=== PATIENT | female | born 2000 | race Two or more races ===

== ENCOUNTER 2020-06-08 13:55 | Inpatient (IN) | payer OTHER, MEDICAID ==
[~2020-06-08] VITALS: Ht 149.9 cm; Wt 55.9 kg
[2020-06-08 14:24] LABS: COVID AG,FIA SOURCE NASOPHARYNGEAL
[2020-06-08] MEDS ORDERED: ONDANSETRON HCL 4 MG/2 ML VIAL IVP ONE (14:30)
[2020-06-08] MEDS ORDERED: MORPHINE SULFATE 4 MG/ML SYRINGE IVP ONE (14:30)
[2020-06-08 15:37] LABS: BASOPHILS % (AUTO) 0.2 % (0.0-2.0); EOSINOPHILS % (AUTO) 0 % (1.0-6.0); HEMATOCRIT 37.1 % (36-46); HEMOGLOBIN 12.8 g/dL (12.0-16.0); LYMPHOCYTES # (AUTO) 0.6 K/uL (1.0-4.8); LYMPHOCYTES % (AUTO) 4.5 % (22.0-44.0); MEAN CORPUSCULAR HEMOGLOBIN 30.7 pg (26.0-34.0); MEAN CORPUSCULAR HGB CONC 34.6 G/dL (31.0-37.0); MEAN CORPUSCULAR VOLUME 89 fL (80-100); MONOCYTES # (AUTO) 0.4 K/uL (0.1-1.0); MONOCYTES % (AUTO) 3.2 % (2.0-9.0); NEUTROPHILS # (AUTO) 12.7 K/uL (1.8-7.7); PLATELET COUNT (AUTO) 163 K/uL (150-450); RED BLOOD CELL COUNT(AUTO) 4.18 MIL/uL (4.00-5.20); RED CELL DISTRIBUTION WIDTH 14.2 % (11.5-14.5)
[2020-06-08 15:45] LABS: NEUTROPHILS % (AUTO) 92.1 % (40.0-70.0)
[2020-06-08 15:49] LABS: ANION GAP 13 mmol/L (8-16); CALCIUM, TOTAL 8.7 mg/dL (8.8-10.5); CARBON DIOXIDE 23 mmol/L (22-29); CHLORIDE 105 mmol/L (98-107); CREATININE 0.65 mg/dL (0.60-1.30); GLOMERULAR FILTR. RATE CALC > 60 mL/min (>60); GLUCOSE,RANDOM 98 mg/dL (70-110); POTASSIUM 3.7 mmol/L (3.5-5.1); SODIUM SERUM 141 mmol/L (136-145); UREA NITROGEN, BLOOD 11 mg/dL (7-18)
[2020-06-08 16:03] LABS: ALANINE AMINOTRANSFERASE 33 U/L (12-78); ALBUMIN 4.1 g/dL (3.4-5.0); ALKALINE PHOSPHATASE 103 U/L (46-116); ASPARTATE AMINOTRANSFERASE 26 U/L (15-37); BILIRUBIN,TOTAL 0.7 mg/dL (0.1-1.0); HCG,QUANTITATIVE < 1 mIU/mL (0-6); TOTAL PROTEIN, SERUM 7.6 g/dL (6.4-8.2)
[2020-06-08 16:11] LABS: PROTHROMBIN TIME 10.9 SEC (9.4-11.6)
[2020-06-08] MEDS ORDERED: SODIUM CHLORIDE 0.9% 100 ML ONE (16:27)
[2020-06-08] MEDS ORDERED: IOVERSOL 350 MG/ML 100 ML VIAL ONE (16:28)
[2020-06-08 16:41] VITALS: BP 132/77
[2020-06-08] MEDS ORDERED: BISACODYL 10 MG RECTAL RECTAL SUPPOSITORY PR PRN (17:45)
[2020-06-08] MEDS ORDERED: MAGNESIUM HYDROXIDE SUSPENSION 30 ML UDCUP PO PRN (17:45)
[2020-06-08] MEDS ORDERED: ZOLPIDEM TARTRATE 5 MG TABLET PO PRN (17:45)
[2020-06-08] MEDS ORDERED: MORPHINE SULFATE 2 MG/ML SYRINGE IVP PRN (17:45)
[2020-06-08] MEDS: MORPHINE SULFATE 2 MG/ML SYRINGE IVP PRN (17:56)
[2020-06-08 19:22] VITALS: BP 117/70
[2020-06-08] MEDS: HYDROCODONE/ACETAMINOPHEN 5-325 MG TABLET PO PRN ×2 (20:17→23:55)
[2020-06-08] MEDS: DOCUSATE SODIUM 100 MG CAPSULE PO SCH (20:17)
[2020-06-08] MEDS: HEPARIN SODIUM,PORCINE 5,000 UNITS/ML VIAL SQ SCH (23:31)
[2020-06-09 03:50] VITALS: BP 128/72
[2020-06-09 07:29] VITALS: BP 117/77
[2020-06-09] MEDS: HEPARIN SODIUM,PORCINE 5,000 UNITS/ML VIAL SQ SCH (08:00)
[2020-06-09] MEDS: DOCUSATE SODIUM 100 MG CAPSULE PO SCH ×2 (08:05→20:02)
[2020-06-09] MEDS: PANTOPRAZOLE SODIUM 40 MG DR TABLET PO SCH (08:05)
[2020-06-09] MEDS: MORPHINE SULFATE 2 MG/ML SYRINGE IVP PRN (09:37)
[2020-06-09 10:23] VITALS: BP 119/78
[2020-06-09] MEDS ORDERED: RINGERS SOLUTION,LACTATED 1,000 ML IV ONE ×2 (10:30→11:30)
[2020-06-09] MEDS ORDERED: MUPIROCIN CALCIUM 2% 22 GM OINTMENT ONE (11:18)
[2020-06-09] MEDS ORDERED: VANCOMYCIN HCL 1 GM/VIAL ONE (11:18)
[2020-06-09] MEDS ORDERED: MICROFIBRILLAR COLLAGEN 1 GM PACKAGE TP ONE (11:18)
[2020-06-09] MEDS ORDERED: BUPIVACAINE HCL 0.25% 50 ML VIAL ONE (11:18)
[2020-06-09] MEDS ORDERED: SODIUM CL IRRIG SOLN BAG 3,000 ML IRRIG ONE (11:20)
[2020-06-09] MEDS ORDERED: BUPIVACAINE LIPOSOME/PF 1.3%-13.3MG/ML SUSPENSION 20 ML VIAL INJ ONE (11:30)
[2020-06-09] MEDS ORDERED: BUPIVACAINE HCL/PF 0.5% 30 ML VIAL ONE (12:04)
[2020-06-09] MEDS: CeFAZolin 2 GM/DEXTROSE 50 ML IV SCH ×2 (16:58→23:30)
[2020-06-09 17:03] VITALS: BP 121/74
[2020-06-09 19:50] VITALS: BP 136/81
[2020-06-09 23:45] VITALS: BP 131/66
[2020-06-10 04:50] VITALS: BP 118/70
[2020-06-10] MEDS: HYDROCODONE/ACETAMINOPHEN 5-325 MG TABLET PO PRN ×3 (05:04→23:02)
[2020-06-10] MEDS ORDERED: FentaNYL CITRATE PF 100 MCG/2 ML VIAL IVP ONE (05:45)
[2020-06-10] MEDS ORDERED: METOCLOPRAMIDE HCL 5 MG/ML 2 ML VIAL IVP ONE (05:45)
[2020-06-10] MEDS ORDERED: MIDAZOLAM HCL 2 MG/2 ML VIAL IVP ONE (05:45)
[2020-06-10] MEDS ORDERED: SUCCINYLCHOLINE CHLORIDE 20 MG/ML 10 ML VIAL IVP ONE (05:45)
[2020-06-10] MEDS ORDERED: LIDOCAINE/PF 2% 5 ML SYRINGE IVP ONE (05:45)
[2020-06-10] MEDS ORDERED: ONDANSETRON HCL 4 MG/2 ML VIAL IVP ONE (05:45)
[2020-06-10] MEDS ORDERED: DEXAMETHASONE SOD PHOS 4 MG/ML VIAL IVP ONE (05:45)
[2020-06-10 08:21] VITALS: BP 115/59
[2020-06-10] MEDS: PANTOPRAZOLE SODIUM 40 MG DR TABLET PO SCH (08:28)
[2020-06-10] MEDS: ENOXAPARIN SODIUM 30 MG/0.3 ML PF SYRINGE SQ SCH (08:28)
[2020-06-10] MEDS: DOCUSATE SODIUM 100 MG CAPSULE PO SCH ×2 (08:28→20:48)
[2020-06-10] MEDS: MORPHINE SULFATE 2 MG/ML SYRINGE IVP PRN ×2 (08:32→14:47)
[2020-06-10] MEDS ORDERED: SODIUM CHLORIDE 0.9% 1,000 ML ONE (09:21)
[2020-06-10] MEDS ORDERED: CeFAZolin SODIUM 500 MG in DEXTROSE 5%-WATER 50 ML IV SCH (17:00)
[2020-06-10] MEDS: CeFAZolin 2 GM/DEXTROSE 50 ML IV SCH (18:13)
[2020-06-10 20:21] VITALS: BP 122/76
[2020-06-11 00:16] VITALS: BP 116/79
[2020-06-11] MEDS: CeFAZolin 2 GM/DEXTROSE 50 ML IV SCH ×3 (02:19→18:56)
[2020-06-11 04:39] VITALS: BP 120/78
[2020-06-11 07:51] VITALS: BP 123/89
[2020-06-11] MEDS: PANTOPRAZOLE SODIUM 40 MG DR TABLET PO SCH (09:05)
[2020-06-11] MEDS: DOCUSATE SODIUM 100 MG CAPSULE PO SCH ×2 (09:05→20:12)
[2020-06-11] MEDS: ENOXAPARIN SODIUM 30 MG/0.3 ML PF SYRINGE SQ SCH (09:09)
[2020-06-11] MEDS: MUPIROCIN CALCIUM 2% 22 GM OINTMENT TP SCH (09:25)
[2020-06-11] MEDS: MORPHINE SULFATE 2 MG/ML SYRINGE IVP PRN ×3 (09:25→20:12)
[2020-06-11 15:31] VITALS: BP 117/79
[2020-06-11 19:46] VITALS: BP 106/61
[2020-06-11] MEDS: HYDROCODONE/ACETAMINOPHEN 5-325 MG TABLET PO PRN (23:30)
[2020-06-11 23:45] VITALS: BP 105/59
[2020-06-12 04:04] VITALS: BP 102/62
[2020-06-12] MEDS: HYDROCODONE/ACETAMINOPHEN 5-325 MG TABLET PO PRN ×4 (04:10→21:56)
[2020-06-12 08:07] VITALS: BP 99/67
[2020-06-12] MEDS: DOCUSATE SODIUM 100 MG CAPSULE PO SCH ×2 (08:17→20:03)
[2020-06-12] MEDS: PANTOPRAZOLE SODIUM 40 MG DR TABLET PO SCH (08:17)
[2020-06-12] MEDS: ENOXAPARIN SODIUM 30 MG/0.3 ML PF SYRINGE SQ SCH (08:17)
[2020-06-12] MEDS: MORPHINE SULFATE 2 MG/ML SYRINGE IVP PRN ×3 (10:57→20:03)
[2020-06-12] MEDS: MUPIROCIN CALCIUM 2% 22 GM OINTMENT TP SCH (14:39)
[2020-06-12 15:31] VITALS: BP 125/79
[2020-06-12 19:45] VITALS: BP 107/72
[2020-06-12] MEDS ORDERED: SODIUM CL IRRIG SOLN BOTTLE 250 ML IRRIG ONE (21:36)
[2020-06-13 00:07] VITALS: BP 129/82
[2020-06-13 03:22] VITALS: BP 111/74
[2020-06-13] MEDS: HYDROCODONE/ACETAMINOPHEN 5-325 MG TABLET PO PRN ×4 (03:28→17:09)
[2020-06-13] MEDS: MORPHINE SULFATE 2 MG/ML SYRINGE IVP PRN ×2 (05:40→10:11)
[2020-06-13 08:17] VITALS: BP 105/69
[2020-06-13] MEDS: PANTOPRAZOLE SODIUM 40 MG DR TABLET PO SCH (08:26)
[2020-06-13] MEDS: ENOXAPARIN SODIUM 30 MG/0.3 ML PF SYRINGE SQ SCH (08:26)
[2020-06-13] MEDS: DOCUSATE SODIUM 100 MG CAPSULE PO SCH ×2 (08:26→21:00)
[2020-06-13] MEDS: MUPIROCIN CALCIUM 2% 22 GM OINTMENT TP SCH (10:54)
[2020-06-13 19:45] VITALS: BP 108/65
[2020-06-13 23:35] VITALS: BP 107/51
[2020-06-14] MEDS: HYDROCODONE/ACETAMINOPHEN 5-325 MG TABLET PO PRN ×2 (02:35→08:13)
[2020-06-14 04:50] VITALS: BP 104/70
[2020-06-14] MEDS: MORPHINE SULFATE 2 MG/ML SYRINGE IVP PRN ×3 (05:00→19:55)
[2020-06-14] MEDS: PANTOPRAZOLE SODIUM 40 MG DR TABLET PO SCH (08:13)
[2020-06-14] MEDS: DOCUSATE SODIUM 100 MG CAPSULE PO SCH ×2 (08:13→21:00)
[2020-06-14] MEDS: ENOXAPARIN SODIUM 30 MG/0.3 ML PF SYRINGE SQ SCH (08:13)
[2020-06-14 08:28] VITALS: BP 112/55
[2020-06-14] MEDS: MUPIROCIN CALCIUM 2% 22 GM OINTMENT TP SCH (13:29)
[2020-06-14 16:03] VITALS: BP 106/64
[2020-06-14] MEDS ORDERED: DEXAMETHASONE 1 MG TABLET ONE (16:45)
[2020-06-14] MEDS ORDERED: PROPOFOL 1% 20 ML VIAL IVP ONE (16:45)
[2020-06-14] MEDS ORDERED: ROCURONIUM BROMIDE 10 MG/ML 5 ML VIAL ONE (16:45)
[2020-06-14 19:50] VITALS: BP 118/66
[2020-06-14 23:40] VITALS: BP 103/69
[2020-06-15] MEDS: MORPHINE SULFATE 2 MG/ML SYRINGE IVP PRN ×2 (00:21→04:22)
[2020-06-15 06:05] LABS: BASOPHILS % (AUTO) 0.3 % (0.0-2.0); EOSINOPHILS % (AUTO) 2.9 % (1.0-6.0); HEMATOCRIT 31.4 % (36-46); HEMOGLOBIN 10.9 g/dL (12.0-16.0); LYMPHOCYTES # (AUTO) 1.5 K/uL (1.0-4.8); LYMPHOCYTES % (AUTO) 19.3 % (22.0-44.0); MEAN CORPUSCULAR HGB CONC 34.7 G/dL (31.0-37.0); MEAN CORPUSCULAR VOLUME 89 fL (80-100); MONOCYTES # (AUTO) 0.4 K/uL (0.1-1.0); MONOCYTES % (AUTO) 5.1 % (2.0-9.0); NEUTROPHILS # (AUTO) 5.8 K/uL (1.8-7.7); NEUTROPHILS % (AUTO) 72.4 % (40.0-70.0); PLATELET COUNT (AUTO) 228 K/uL (150-450); RED BLOOD CELL COUNT(AUTO) 3.53 MIL/uL (4.00-5.20); RED CELL DISTRIBUTION WIDTH 14.4 % (11.5-14.5)
[2020-06-15 06:18] LABS: ANION GAP 10 mmol/L (8-16); CARBON DIOXIDE 27 mmol/L (22-29); CHLORIDE 102 mmol/L (98-107); CREATININE 0.61 mg/dL (0.60-1.30); GLOMERULAR FILTR. RATE CALC > 60 mL/min (>60); GLUCOSE,RANDOM 93 mg/dL (70-110); POTASSIUM 3.7 mmol/L (3.5-5.1); SODIUM SERUM 139 mmol/L (136-145); UREA NITROGEN, BLOOD 12 mg/dL (7-18)
[2020-06-15 08:18] VITALS: BP 104/65
[2020-06-15] MEDS: MUPIROCIN CALCIUM 2% 22 GM OINTMENT TP SCH (08:51)
[2020-06-15] MEDS: PANTOPRAZOLE SODIUM 40 MG DR TABLET PO SCH (08:51)
[2020-06-15] MEDS: DOCUSATE SODIUM 100 MG CAPSULE PO SCH ×2 (08:52→20:06)
[2020-06-15] MEDS: HYDROCODONE/ACETAMINOPHEN 5-325 MG TABLET PO PRN ×2 (14:16→20:05)
[2020-06-15 16:03] VITALS: BP 112/73
[2020-06-15 19:51] VITALS: BP 110/74
[2020-06-15 23:05] VITALS: BP 114/72
[2020-06-16] MEDS: HYDROCODONE/ACETAMINOPHEN 5-325 MG TABLET PO PRN (01:49)
[2020-06-16 04:00] VITALS: BP 107/55
[2020-06-16] MEDS: MORPHINE SULFATE 2 MG/ML SYRINGE IVP PRN ×3 (05:48→20:13)
[2020-06-16] MEDS: PANTOPRAZOLE SODIUM 40 MG DR TABLET PO SCH (08:47)
[2020-06-16] MEDS: DOCUSATE SODIUM 100 MG CAPSULE PO SCH ×2 (08:47→20:12)
[2020-06-16] MEDS: MUPIROCIN CALCIUM 2% 22 GM OINTMENT TP SCH (08:50)
[2020-06-16 09:01] VITALS: BP 113/66
[2020-06-16 16:16] VITALS: BP 113/63
[2020-06-16 20:20] VITALS: BP 107/73
[2020-06-17 00:05] VITALS: BP 118/63
[2020-06-17] MEDS: MORPHINE SULFATE 2 MG/ML SYRINGE IVP PRN ×5 (01:17→23:50)
[2020-06-17 03:41] VITALS: BP 119/86
[2020-06-17] MEDS: HYDROCODONE/ACETAMINOPHEN 5-325 MG TABLET PO PRN ×2 (03:45→13:48)
[2020-06-17] MEDS ORDERED: RINGERS SOLUTION,LACTATED 1,000 ML IV ONE ×2 (05:06→05:30)
[2020-06-17] MEDS ORDERED: BUPIVACAINE HCL/PF 0.5% 30 ML VIAL ONE (05:41)
[2020-06-17] MEDS ORDERED: MUPIROCIN CALCIUM 2% 22 GM OINTMENT ONE (05:41)
[2020-06-17] MEDS ORDERED: GELATIN SPONGE,ABSORBABLE 50 MM TP ONE (05:41)
[2020-06-17] MEDS ORDERED: MICROFIBRILLAR COLLAGEN 1 GM PACKAGE TP ONE (05:41)
[2020-06-17] MEDS ORDERED: BUPIVACAINE HCL/PF 0.25% 30 ML VIAL ONE (05:41)
[2020-06-17] MEDS ORDERED: VANCOMYCIN HCL 1 GM/VIAL ONE (05:41)
[2020-06-17] MEDS ORDERED: SODIUM CL IRRIG SOLN BAG 3,000 ML IRRIG ONE (05:42)
[2020-06-17] MEDS ORDERED: BUPIVACAINE LIPOSOME/PF 1.3%-13.3MG/ML SUSPENSION 20 ML VIAL INJ ONE (05:45)
[2020-06-17] MEDS: MUPIROCIN CALCIUM 2% 22 GM OINTMENT TP SCH (09:00)
[2020-06-17] MEDS ORDERED: ACETAMINOPHEN 1000 MG/ISO-OSM 100 ML IV ONE ×2 (09:19→09:30)
[2020-06-17] MEDS ORDERED: ONDANSETRON HCL 4 MG/2 ML VIAL ONE (09:21)
[2020-06-17] MEDS: ONDANSETRON HCL 4 MG/2 ML VIAL IVP PRN ×2 (09:28→19:47)
[2020-06-17] MEDS ORDERED: MEPERIDINE-PF 25 MG/ML VIAL IVP PRN (09:30)
[2020-06-17] MEDS ORDERED: FentaNYL CITRATE PF 100 MCG/2 ML VIAL IVP PRN (09:30)
[2020-06-17] MEDS ORDERED: HYDROmorphone 2 MG/ML VIAL IVP PRN (09:30)
[2020-06-17 10:15] VITALS: BP 135/86
[2020-06-17] MEDS ORDERED: SODIUM CHLORIDE 0.9% 500 ML IV ONE (11:39)
[2020-06-17] MEDS: DOCUSATE SODIUM 100 MG CAPSULE PO SCH ×2 (11:59→19:47)
[2020-06-17] MEDS: CeFAZolin 1 GM/DEXTROSE 50 ML IV SCH ×2 (11:59→19:46)
[2020-06-17] MEDS: PANTOPRAZOLE SODIUM 40 MG DR TABLET PO SCH (11:59)
[2020-06-17 16:39] VITALS: BP 119/76
[2020-06-17] MEDS: OXYGEN THERAPY IH SCH (19:47)
[2020-06-17 20:20] VITALS: BP 145/84
[2020-06-18] VITALS: BP 141/67
[2020-06-18] MEDS: MORPHINE SULFATE 2 MG/ML SYRINGE IVP PRN (03:45)
[2020-06-18] MEDS: CeFAZolin 1 GM/DEXTROSE 50 ML IV SCH ×3 (03:46→21:00)
[2020-06-18 05:19] VITALS: BP 118/69
[2020-06-18] MEDS: ACETAMINOPHEN 325 MG TABLET PO PRN (05:21)
[2020-06-18] MEDS: OXYGEN THERAPY IH SCH ×2 (08:00→20:00)
[2020-06-18 08:02] VITALS: BP 100/68
[2020-06-18] MEDS: PANTOPRAZOLE SODIUM 40 MG DR TABLET PO SCH (08:29)
[2020-06-18] MEDS: DOCUSATE SODIUM 100 MG CAPSULE PO SCH ×2 (08:29→20:59)
[2020-06-18] MEDS: HYDROCODONE/ACETAMINOPHEN 5-325 MG TABLET PO PRN ×2 (08:29→14:02)
[2020-06-18] MEDS: MULTIVITAMINS, THERAPEUTIC TABLET PO SCH (08:29)
[2020-06-18] MEDS: ENOXAPARIN SODIUM 40 MG/0.4 ML PF SYRINGE SQ SCH (08:29)
[2020-06-18] MEDS: MUPIROCIN CALCIUM 2% 22 GM OINTMENT TP SCH (08:33)
[2020-06-18] MEDS ORDERED: ENOXAPARIN SODIUM 30 MG/0.3 ML PF SYRINGE SQ SCH (09:00)
[2020-06-18 15:26] VITALS: BP 122/78
[2020-06-18 20:09] VITALS: BP 119/71
[2020-06-19 00:39] VITALS: BP 109/64
[2020-06-19] MEDS: HYDROCODONE/ACETAMINOPHEN 5-325 MG TABLET PO PRN ×2 (00:52→15:32)
[2020-06-19] MEDS: CeFAZolin 1 GM/DEXTROSE 50 ML IV SCH ×3 (04:03→20:57)
[2020-06-19] MEDS: MORPHINE SULFATE 2 MG/ML SYRINGE IVP PRN ×3 (04:24→20:56)
[2020-06-19 04:44] VITALS: BP 102/58
[2020-06-19 05:48] LABS: BASOPHILS % (AUTO) 0.5 % (0.0-2.0); EOSINOPHILS % (AUTO) 1.8 % (1.0-6.0); HEMATOCRIT 29.9 % (36-46); HEMOGLOBIN 10.4 g/dL (12.0-16.0); LYMPHOCYTES # (AUTO) 1.6 K/uL (1.0-4.8); LYMPHOCYTES % (AUTO) 20.6 % (22.0-44.0); MEAN CORPUSCULAR HEMOGLOBIN 30.5 pg (26.0-34.0); MEAN CORPUSCULAR HGB CONC 34.9 G/dL (31.0-37.0); MEAN CORPUSCULAR VOLUME 87 fL (80-100); MONOCYTES # (AUTO) 0.6 K/uL (0.1-1.0); MONOCYTES % (AUTO) 7.2 % (2.0-9.0); NEUTROPHILS # (AUTO) 5.3 K/uL (1.8-7.7); NEUTROPHILS % (AUTO) 69.9 % (40.0-70.0); PLATELET COUNT (AUTO) 230 K/uL (150-450); RED BLOOD CELL COUNT(AUTO) 3.42 MIL/uL (4.00-5.20); RED CELL DISTRIBUTION WIDTH 14.4 % (11.5-14.5)
[2020-06-19 05:59] LABS: ALANINE AMINOTRANSFERASE 13 U/L (12-78); ALBUMIN 2.9 g/dL (3.4-5.0); ALKALINE PHOSPHATASE 128 U/L (46-116); ANION GAP 9 mmol/L (8-16); ASPARTATE AMINOTRANSFERASE 21 U/L (15-37); BILIRUBIN,TOTAL 0.5 mg/dL (0.1-1.0); CALCIUM, TOTAL 8.5 mg/dL (8.8-10.5); CARBON DIOXIDE 28 mmol/L (22-29); CHLORIDE 103 mmol/L (98-107); GLOMERULAR FILTR. RATE CALC > 60 mL/min (>60); GLUCOSE,RANDOM 99 mg/dL (70-110); POTASSIUM 3.6 mmol/L (3.5-5.1); SODIUM SERUM 140 mmol/L (136-145); UREA NITROGEN, BLOOD 6 mg/dL (7-18)
[2020-06-19 07:40] VITALS: BP 112/67
[2020-06-19] MEDS: OXYGEN THERAPY IH SCH (08:00)
[2020-06-19] MEDS: MULTIVITAMINS, THERAPEUTIC TABLET PO SCH (08:32)
[2020-06-19] MEDS: ENOXAPARIN SODIUM 40 MG/0.4 ML PF SYRINGE SQ SCH (08:33)
[2020-06-19] MEDS: DOCUSATE SODIUM 100 MG CAPSULE PO SCH ×2 (08:33→21:00)
[2020-06-19] MEDS: PANTOPRAZOLE SODIUM 40 MG DR TABLET PO SCH (08:33)
[2020-06-19] MEDS: MUPIROCIN CALCIUM 2% 22 GM OINTMENT TP SCH (08:34)
[2020-06-19 15:23] VITALS: BP 115/69
[2020-06-19 19:42] VITALS: BP 110/69
[2020-06-19] MEDS ORDERED: SODIUM CHLORIDE 0.9% 250 ML IV ONE (20:49)
[2020-06-19] MEDS: SULFAMETHOX/TRIMETH DS 800-160 MG/TABLET PO SCH (22:39)
[2020-06-19 23:26] VITALS: BP 129/69
[2020-06-20] MEDS: MORPHINE SULFATE 2 MG/ML SYRINGE IVP PRN ×2 (01:31→05:15)
[2020-06-20] MEDS: CeFAZolin 1 GM/DEXTROSE 50 ML IV SCH (04:19)
[2020-06-20 04:28] VITALS: BP 112/59
[2020-06-20 06:02] LABS: BASOPHILS % (AUTO) 0.5 % (0.0-2.0); EOSINOPHILS % (AUTO) 2.5 % (1.0-6.0); HEMATOCRIT 29.4 % (36-46); HEMOGLOBIN 10.2 g/dL (12.0-16.0); LYMPHOCYTES # (AUTO) 1.5 K/uL (1.0-4.8); LYMPHOCYTES % (AUTO) 21.5 % (22.0-44.0); MEAN CORPUSCULAR HEMOGLOBIN 30.5 pg (26.0-34.0); MEAN CORPUSCULAR HGB CONC 34.8 G/dL (31.0-37.0); MEAN CORPUSCULAR VOLUME 88 fL (80-100); MONOCYTES # (AUTO) 0.4 K/uL (0.1-1.0); MONOCYTES % (AUTO) 5.9 % (2.0-9.0); NEUTROPHILS # (AUTO) 4.9 K/uL (1.8-7.7); NEUTROPHILS % (AUTO) 69.6 % (40.0-70.0); PLATELET COUNT (AUTO) 214 K/uL (150-450); RED BLOOD CELL COUNT(AUTO) 3.35 MIL/uL (4.00-5.20); RED CELL DISTRIBUTION WIDTH 14.3 % (11.5-14.5)
[2020-06-20 06:21] LABS: ALANINE AMINOTRANSFERASE 14 U/L (12-78); ALBUMIN 2.8 g/dL (3.4-5.0); ALKALINE PHOSPHATASE 117 U/L (46-116); ANION GAP 11 mmol/L (8-16); ASPARTATE AMINOTRANSFERASE 16 U/L (15-37); BILIRUBIN,TOTAL 0.8 mg/dL (0.1-1.0); CALCIUM, TOTAL 8.8 mg/dL (8.8-10.5); CARBON DIOXIDE 26 mmol/L (22-29); CHLORIDE 103 mmol/L (98-107); GLOMERULAR FILTR. RATE CALC > 60 mL/min (>60); GLUCOSE,RANDOM 96 mg/dL (70-110); POTASSIUM 3.3 mmol/L (3.5-5.1); SODIUM SERUM 140 mmol/L (136-145); TOTAL PROTEIN, SERUM 6.7 g/dL (6.4-8.2); UREA NITROGEN, BLOOD 7 mg/dL (7-18)
[2020-06-20] MEDS: OXYGEN THERAPY IH SCH ×2 (07:49→20:05)
[2020-06-20] MEDS: PANTOPRAZOLE SODIUM 40 MG DR TABLET PO SCH (07:50)
[2020-06-20] MEDS: DOCUSATE SODIUM 100 MG CAPSULE PO SCH ×2 (07:50→20:04)
[2020-06-20] MEDS: ENOXAPARIN SODIUM 40 MG/0.4 ML PF SYRINGE SQ SCH (07:50)
[2020-06-20] MEDS: SULFAMETHOX/TRIMETH DS 800-160 MG/TABLET PO SCH ×2 (07:50→20:04)
[2020-06-20] MEDS: MULTIVITAMINS, THERAPEUTIC TABLET PO SCH (07:50)
[2020-06-20] MEDS: MUPIROCIN CALCIUM 2% 22 GM OINTMENT TP SCH (07:55)
[2020-06-20] MEDS: HYDROCODONE/ACETAMINOPHEN 5-325 MG TABLET PO PRN ×3 (08:03→22:06)
[2020-06-20 08:05] VITALS: BP 99/55
[2020-06-20] MEDS ORDERED: POTASSIUM CHLORIDE 20 MEQ ER TABLET PO ONE (08:15)
[2020-06-20] MEDS ORDERED: SODIUM CHLORIDE 0.9% 500 ML IV ONE (08:27)
[2020-06-20 15:17] VITALS: BP 105/70
[2020-06-20 19:46] VITALS: BP 111/69
[2020-06-20] MEDS ORDERED: SULFAMETHOX/TRIMETH DS 800-160 MG/TABLET PO SCH (21:00)
[2020-06-20 23:58] VITALS: BP 111/62
[2020-06-21] MEDS ORDERED: SODIUM CHLORIDE 0.9% 500 ML IV ONE (01:22)
[2020-06-21 04:18] VITALS: BP 111/66
[2020-06-21] MEDS: MORPHINE SULFATE 2 MG/ML SYRINGE IVP PRN (04:27)
[2020-06-21 05:51] LABS: BASOPHILS % (AUTO) 0.5 % (0.0-2.0); EOSINOPHILS % (AUTO) 3.4 % (1.0-6.0); HEMATOCRIT 28.4 % (36-46); HEMOGLOBIN 9.9 g/dL (12.0-16.0); LYMPHOCYTES # (AUTO) 1.5 K/uL (1.0-4.8); LYMPHOCYTES % (AUTO) 22.8 % (22.0-44.0); MEAN CORPUSCULAR HEMOGLOBIN 30.5 pg (26.0-34.0); MEAN CORPUSCULAR HGB CONC 34.7 G/dL (31.0-37.0); MEAN CORPUSCULAR VOLUME 88 fL (80-100); MONOCYTES # (AUTO) 0.3 K/uL (0.1-1.0); MONOCYTES % (AUTO) 4.7 % (2.0-9.0); NEUTROPHILS # (AUTO) 4.5 K/uL (1.8-7.7); NEUTROPHILS % (AUTO) 68.6 % (40.0-70.0); PLATELET COUNT (AUTO) 238 K/uL (150-450); RED BLOOD CELL COUNT(AUTO) 3.24 MIL/uL (4.00-5.20); RED CELL DISTRIBUTION WIDTH 14.2 % (11.5-14.5)
[2020-06-21 06:13] LABS: ALANINE AMINOTRANSFERASE 13 U/L (12-78); ALKALINE PHOSPHATASE 123 U/L (46-116); ANION GAP 10 mmol/L (8-16); ASPARTATE AMINOTRANSFERASE 20 U/L (15-37); BILIRUBIN,TOTAL 0.5 mg/dL (0.1-1.0); CALCIUM, TOTAL 8.7 mg/dL (8.8-10.5); CARBON DIOXIDE 25 mmol/L (22-29); CHLORIDE 104 mmol/L (98-107); CREATININE 0.63 mg/dL (0.60-1.30); GLOMERULAR FILTR. RATE CALC > 60 mL/min (>60); GLUCOSE,RANDOM 94 mg/dL (70-110); POTASSIUM 3.9 mmol/L (3.5-5.1); SODIUM SERUM 139 mmol/L (136-145); TOTAL PROTEIN, SERUM 7.1 g/dL (6.4-8.2); UREA NITROGEN, BLOOD 9 mg/dL (7-18)
[2020-06-21] MEDS: OXYGEN THERAPY IH SCH ×2 (08:00→20:18)
[2020-06-21] MEDS: HYDROCODONE/ACETAMINOPHEN 5-325 MG TABLET PO PRN ×3 (08:01→20:30)
[2020-06-21] MEDS: SULFAMETHOX/TRIMETH DS 800-160 MG/TABLET PO SCH ×2 (08:02→20:21)
[2020-06-21] MEDS: MULTIVITAMINS, THERAPEUTIC TABLET PO SCH (08:02)
[2020-06-21] MEDS: DOCUSATE SODIUM 100 MG CAPSULE PO SCH ×2 (08:02→20:21)
[2020-06-21] MEDS: ENOXAPARIN SODIUM 40 MG/0.4 ML PF SYRINGE SQ SCH (08:02)
[2020-06-21] MEDS: PANTOPRAZOLE SODIUM 40 MG DR TABLET PO SCH (08:02)
[2020-06-21 08:03] VITALS: BP 103/64
[2020-06-21 15:45] VITALS: BP 112/70
[2020-06-21 19:45] VITALS: BP 107/57
[2020-06-21 23:18] VITALS: BP 110/70
[2020-06-22 03:29] VITALS: BP 95/55
[2020-06-22] MEDS: HYDROCODONE/ACETAMINOPHEN 5-325 MG TABLET PO PRN ×4 (04:49→19:42)
[2020-06-22 07:14] LABS: BASOPHILS % (AUTO) 0.6 % (0.0-2.0); EOSINOPHILS % (AUTO) 2.9 % (1.0-6.0); HEMATOCRIT 30.7 % (36-46); HEMOGLOBIN 10.5 g/dL (12.0-16.0); LYMPHOCYTES # (AUTO) 1.4 K/uL (1.0-4.8); LYMPHOCYTES % (AUTO) 21.9 % (22.0-44.0); MEAN CORPUSCULAR HEMOGLOBIN 29.6 pg (26.0-34.0); MEAN CORPUSCULAR VOLUME 87 fL (80-100); MONOCYTES # (AUTO) 0.3 K/uL (0.1-1.0); MONOCYTES % (AUTO) 5.1 % (2.0-9.0); NEUTROPHILS # (AUTO) 4.3 K/uL (1.8-7.7); NEUTROPHILS % (AUTO) 69.5 % (40.0-70.0); PLATELET COUNT (AUTO) 287 K/uL (150-450); RED BLOOD CELL COUNT(AUTO) 3.53 MIL/uL (4.00-5.20); RED CELL DISTRIBUTION WIDTH 14.5 % (11.5-14.5)
[2020-06-22 07:28] VITALS: BP 120/76
[2020-06-22 07:33] LABS: ALANINE AMINOTRANSFERASE 14 U/L (12-78); ALBUMIN 3.3 g/dL (3.4-5.0); ALKALINE PHOSPHATASE 123 U/L (46-116); ANION GAP 12 mmol/L (8-16); ASPARTATE AMINOTRANSFERASE 20 U/L (15-37); BILIRUBIN,TOTAL 0.4 mg/dL (0.1-1.0); CARBON DIOXIDE 26 mmol/L (22-29); CHLORIDE 101 mmol/L (98-107); CREATININE 0.69 mg/dL (0.60-1.30); GLOMERULAR FILTR. RATE CALC > 60 mL/min (>60); GLUCOSE,RANDOM 92 mg/dL (70-110); POTASSIUM 4.1 mmol/L (3.5-5.1); SODIUM SERUM 139 mmol/L (136-145); TOTAL PROTEIN, SERUM 7.2 g/dL (6.4-8.2); UREA NITROGEN, BLOOD 9 mg/dL (7-18)
[2020-06-22] MEDS: OXYGEN THERAPY IH SCH (08:00)
[2020-06-22] MEDS: ENOXAPARIN SODIUM 40 MG/0.4 ML PF SYRINGE SQ SCH (08:38)
[2020-06-22] MEDS: DOCUSATE SODIUM 100 MG CAPSULE PO SCH ×2 (08:39→19:42)
[2020-06-22] MEDS: MULTIVITAMINS, THERAPEUTIC TABLET PO SCH (08:39)
[2020-06-22] MEDS: PANTOPRAZOLE SODIUM 40 MG DR TABLET PO SCH (08:39)
[2020-06-22] MEDS: SULFAMETHOX/TRIMETH DS 800-160 MG/TABLET PO SCH ×2 (08:39→19:42)
[2020-06-22 16:15] VITALS: BP 99/58
[2020-06-22 19:57] VITALS: BP 109/63
[2020-06-22 23:42] VITALS: BP 107/69
[2020-06-23 03:38] VITALS: BP 101/61
[2020-06-23 05:36] LABS: BASOPHILS % (AUTO) 0.5 % (0.0-2.0); EOSINOPHILS % (AUTO) 2.7 % (1.0-6.0); HEMATOCRIT 31.3 % (36-46); HEMOGLOBIN 10.7 g/dL (12.0-16.0); LYMPHOCYTES # (AUTO) 1.3 K/uL (1.0-4.8); LYMPHOCYTES % (AUTO) 24.1 % (22.0-44.0); MEAN CORPUSCULAR HEMOGLOBIN 29.6 pg (26.0-34.0); MEAN CORPUSCULAR HGB CONC 34.1 G/dL (31.0-37.0); MEAN CORPUSCULAR VOLUME 87 fL (80-100); MONOCYTES # (AUTO) 0.4 K/uL (0.1-1.0); MONOCYTES % (AUTO) 6.4 % (2.0-9.0); NEUTROPHILS # (AUTO) 3.7 K/uL (1.8-7.7); NEUTROPHILS % (AUTO) 66.3 % (40.0-70.0); PLATELET COUNT (AUTO) 296 K/uL (150-450); RED CELL DISTRIBUTION WIDTH 14.4 % (11.5-14.5)
[2020-06-23 05:51] LABS: ALANINE AMINOTRANSFERASE 15 U/L (12-78); ALBUMIN 3.2 g/dL (3.4-5.0); ALKALINE PHOSPHATASE 131 U/L (46-116); ANION GAP 10 mmol/L (8-16); ASPARTATE AMINOTRANSFERASE 15 U/L (15-37); BILIRUBIN,TOTAL 0.4 mg/dL (0.1-1.0); CARBON DIOXIDE 25 mmol/L (22-29); CHLORIDE 102 mmol/L (98-107); CREATININE 0.83 mg/dL (0.60-1.30); GLOMERULAR FILTR. RATE CALC > 60 mL/min (>60); GLUCOSE,RANDOM 91 mg/dL (70-110); POTASSIUM 3.9 mmol/L (3.5-5.1); SODIUM SERUM 137 mmol/L (136-145); TOTAL PROTEIN, SERUM 7.3 g/dL (6.4-8.2); UREA NITROGEN, BLOOD 13 mg/dL (7-18)
[2020-06-23] MEDS: OXYGEN THERAPY IH SCH ×2 (08:00→20:00)
[2020-06-23] MEDS: PANTOPRAZOLE SODIUM 40 MG DR TABLET PO SCH (08:01)
[2020-06-23] MEDS: MULTIVITAMINS, THERAPEUTIC TABLET PO SCH (08:01)
[2020-06-23] MEDS: DOCUSATE SODIUM 100 MG CAPSULE PO SCH ×2 (08:01→23:00)
[2020-06-23] MEDS: SULFAMETHOX/TRIMETH DS 800-160 MG/TABLET PO SCH ×2 (08:01→23:00)
[2020-06-23] MEDS: ENOXAPARIN SODIUM 40 MG/0.4 ML PF SYRINGE SQ SCH (08:01)
[2020-06-23 08:15] VITALS: BP 110/67
[2020-06-23] MEDS: HYDROCODONE/ACETAMINOPHEN 5-325 MG TABLET PO PRN ×2 (09:07→16:21)
[2020-06-23 15:44] VITALS: BP 114/75
[2020-06-23 20:32] VITALS: BP 104/69
[2020-06-23] MEDS: ACETAMINOPHEN 325 MG TABLET PO PRN (23:02)
[2020-06-23 23:34] VITALS: BP 108/69
[2020-06-24 03:40] VITALS: BP 105/66
[2020-06-24] MEDS: HYDROCODONE/ACETAMINOPHEN 5-325 MG TABLET PO PRN ×4 (03:51→20:03)
[2020-06-24 05:43] LABS: BASOPHILS % (AUTO) 0.7 % (0.0-2.0); EOSINOPHILS % (AUTO) 2.9 % (1.0-6.0); HEMATOCRIT 31.3 % (36-46); HEMOGLOBIN 10.8 g/dL (12.0-16.0); LYMPHOCYTES # (AUTO) 1.3 K/uL (1.0-4.8); LYMPHOCYTES % (AUTO) 31.5 % (22.0-44.0); MEAN CORPUSCULAR HEMOGLOBIN 30.1 pg (26.0-34.0); MEAN CORPUSCULAR HGB CONC 34.4 G/dL (31.0-37.0); MEAN CORPUSCULAR VOLUME 87 fL (80-100); MONOCYTES # (AUTO) 0.3 K/uL (0.1-1.0); NEUTROPHILS # (AUTO) 2.4 K/uL (1.8-7.7); NEUTROPHILS % (AUTO) 57.9 % (40.0-70.0); PLATELET COUNT (AUTO) 298 K/uL (150-450); RED BLOOD CELL COUNT(AUTO) 3.58 MIL/uL (4.00-5.20); RED CELL DISTRIBUTION WIDTH 14.6 % (11.5-14.5)
[2020-06-24 06:16] LABS: ALANINE AMINOTRANSFERASE 15 U/L (12-78); ALBUMIN 3.2 g/dL (3.4-5.0); ALKALINE PHOSPHATASE 127 U/L (46-116); ANION GAP 10 mmol/L (8-16); ASPARTATE AMINOTRANSFERASE 14 U/L (15-37); BILIRUBIN,TOTAL 0.3 mg/dL (0.1-1.0); CALCIUM, TOTAL 9.2 mg/dL (8.8-10.5); CARBON DIOXIDE 26 mmol/L (22-29); CHLORIDE 102 mmol/L (98-107); CREATININE 0.77 mg/dL (0.60-1.30); GLOMERULAR FILTR. RATE CALC > 60 mL/min (>60); GLUCOSE,RANDOM 92 mg/dL (70-110); POTASSIUM 3.9 mmol/L (3.5-5.1); SODIUM SERUM 138 mmol/L (136-145); TOTAL PROTEIN, SERUM 7.3 g/dL (6.4-8.2); UREA NITROGEN, BLOOD 13 mg/dL (7-18)
[2020-06-24] MEDS: OXYGEN THERAPY IH SCH ×2 (08:00→20:00)
[2020-06-24 08:25] VITALS: BP 103/64
[2020-06-24] MEDS: MUPIROCIN CALCIUM 2% 22 GM OINTMENT TP SCH (08:33)
[2020-06-24] MEDS: PANTOPRAZOLE SODIUM 40 MG DR TABLET PO SCH (08:33)
[2020-06-24] MEDS: DOCUSATE SODIUM 100 MG CAPSULE PO SCH ×2 (08:33→20:03)
[2020-06-24] MEDS: ENOXAPARIN SODIUM 40 MG/0.4 ML PF SYRINGE SQ SCH (08:33)
[2020-06-24] MEDS: SULFAMETHOX/TRIMETH DS 800-160 MG/TABLET PO SCH ×2 (08:34→20:03)
[2020-06-24] MEDS: MULTIVITAMINS, THERAPEUTIC TABLET PO SCH (08:34)
[2020-06-24 16:20] VITALS: BP 103/63
[2020-06-24 20:28] VITALS: BP 105/67
[2020-06-24 23:24] VITALS: BP 106/69
[2020-06-25 04:58] VITALS: BP 111/66
[2020-06-25] MEDS: HYDROCODONE/ACETAMINOPHEN 5-325 MG TABLET PO PRN (05:08)
[2020-06-25 05:43] LABS: BASOPHILS % (AUTO) 0.5 % (0.0-2.0); EOSINOPHILS % (AUTO) 3.1 % (1.0-6.0); HEMATOCRIT 32.2 % (36-46); LYMPHOCYTES # (AUTO) 1.9 K/uL (1.0-4.8); LYMPHOCYTES % (AUTO) 35.9 % (22.0-44.0); MEAN CORPUSCULAR HEMOGLOBIN 29.8 pg (26.0-34.0); MEAN CORPUSCULAR HGB CONC 34.2 G/dL (31.0-37.0); MEAN CORPUSCULAR VOLUME 87 fL (80-100); MONOCYTES # (AUTO) 0.4 K/uL (0.1-1.0); MONOCYTES % (AUTO) 6.8 % (2.0-9.0); NEUTROPHILS # (AUTO) 2.9 K/uL (1.8-7.7); NEUTROPHILS % (AUTO) 53.7 % (40.0-70.0); PLATELET COUNT (AUTO) 303 K/uL (150-450); RED CELL DISTRIBUTION WIDTH 14.9 % (11.5-14.5)
[2020-06-25 06:05] LABS: ALANINE AMINOTRANSFERASE 17 U/L (12-78); ALBUMIN 3.2 g/dL (3.4-5.0); ALKALINE PHOSPHATASE 124 U/L (46-116); ANION GAP 10 mmol/L (8-16); ASPARTATE AMINOTRANSFERASE 12 U/L (15-37); BILIRUBIN,TOTAL 0.3 mg/dL (0.1-1.0); CALCIUM, TOTAL 8.9 mg/dL (8.8-10.5); CARBON DIOXIDE 27 mmol/L (22-29); CHLORIDE 102 mmol/L (98-107); GLOMERULAR FILTR. RATE CALC > 60 mL/min (>60); GLUCOSE,RANDOM 86 mg/dL (70-110); POTASSIUM 3.9 mmol/L (3.5-5.1); SODIUM SERUM 139 mmol/L (136-145); TOTAL PROTEIN, SERUM 7.2 g/dL (6.4-8.2); UREA NITROGEN, BLOOD 16 mg/dL (7-18)
[2020-06-25] MEDS: OXYGEN THERAPY IH SCH ×2 (08:00→20:00)
[2020-06-25 08:14] VITALS: BP 105/76
[2020-06-25] MEDS: PANTOPRAZOLE SODIUM 40 MG DR TABLET PO SCH (08:41)
[2020-06-25] MEDS: MULTIVITAMINS, THERAPEUTIC TABLET PO SCH (08:41)
[2020-06-25] MEDS: SULFAMETHOX/TRIMETH DS 800-160 MG/TABLET PO SCH ×2 (08:41→20:21)
[2020-06-25] MEDS: ENOXAPARIN SODIUM 40 MG/0.4 ML PF SYRINGE SQ SCH (08:42)
[2020-06-25] MEDS: DOCUSATE SODIUM 100 MG CAPSULE PO SCH ×2 (08:43→20:21)
[2020-06-25] MEDS: MUPIROCIN CALCIUM 2% 22 GM OINTMENT TP SCH (09:00)
[2020-06-25] MEDS ORDERED: [UNRECOGNIZED DRUG - OTHER] PO (11:13)
[2020-06-25] MEDS ORDERED: ASA PO (11:13)
[2020-06-25] MEDS ORDERED: NEOM28.37 TP (11:13)
[2020-06-25] MEDS ORDERED: COLACE PO (15:03)
[2020-06-25] MEDS ORDERED: NORCO 5/325 PO (15:03)
[2020-06-25] MEDS ORDERED: SODIUM CHLORIDE 0.9% 1,000 ML ONE (15:43)
[2020-06-25 16:21] VITALS: BP 107/57
[2020-06-25 19:42] VITALS: BP 99/61
[2020-06-25 23:38] VITALS: BP 102/65
[2020-06-26 02:54] VITALS: BP 109/57
[2020-06-26] MEDS: HYDROCODONE/ACETAMINOPHEN 5-325 MG TABLET PO PRN ×2 (04:23→08:50)
[2020-06-26] MEDS: OXYGEN THERAPY IH SCH (08:00)
[2020-06-26] MEDS: ENOXAPARIN SODIUM 40 MG/0.4 ML PF SYRINGE SQ SCH (08:03)
[2020-06-26] MEDS: DOCUSATE SODIUM 100 MG CAPSULE PO SCH (08:03)
[2020-06-26] MEDS: MULTIVITAMINS, THERAPEUTIC TABLET PO SCH (08:04)
[2020-06-26] MEDS: SULFAMETHOX/TRIMETH DS 800-160 MG/TABLET PO SCH (08:04)
[2020-06-26] MEDS: PANTOPRAZOLE SODIUM 40 MG DR TABLET PO SCH (08:04)
[2020-06-26] MEDS: MUPIROCIN CALCIUM 2% 22 GM OINTMENT TP SCH (08:11)
[2020-06-26 08:28] VITALS: BP 107/67
[2020-06-26] MEDS ORDERED: SODIUM CHLORIDE 0.9% IRRIG BTL 1,000 ML IRRIG ONE (11:25)
== END 2020-06-26 12:39 | disposition home or self-care (01) | DRG 493 ==
LOC: EMS 14:03 → 6S 15:11 → 6N 06-10 09:36
PROVIDERS: ADMIT Internal Medicine; ATTEND Internal Medicine
PROC: 0QSK04Z Reposition Left Fibula with Internal Fixation Device, Open Approach (ICD-10-PCS; 2020-06-09)
PROC: 0QSH04Z Reposition Left Tibia with Internal Fixation Device, Open Approach (ICD-10-PCS; 2020-06-09)
PROC: 0QSH04Z Reposition Left Tibia with Internal Fixation Device, Open Approach (ICD-10-PCS; 2020-06-17)
PROC: 0SPGX4Z Removal of Internal Fixation Device from Left Ankle Joint, External Approach (ICD-10-PCS; 2020-06-17)
PROC: 0QUH0JZ Supplement Left Tibia with Synthetic Substitute, Open Approach (ICD-10-PCS; principal; 2020-06-17 06:30)
DX: S82.872A Displaced pilon fracture of left tibia, initial encounter for closed fracture (principal); S82.202A Unspecified fracture of shaft of left tibia, initial encounter for closed fracture; M25.00 Hemarthrosis, unspecified joint; S82.252A Displaced comminuted fracture of shaft of left tibia, initial encounter for closed fracture; D72.829 Elevated white blood cell count, unspecified; S82.402A Unspecified fracture of shaft of left fibula, initial encounter for closed fracture; E87.6 Hypokalemia; W18.39XA Other fall on same level, initial encounter; Y93.89 Activity, other specified; Y92.89 Other specified places as the place of occurrence of the external cause; Z20.822 Contact with and (suspected) exposure to COVID-19
CPT/HCPCS: 73701; 87426; 93005; 97110; 97112; 97116; 97162; 97164; 97166; 97168; 97530; 97535; 99285; C9290; J0131; J0330; J0690; J1100; J1170; J1644; J1650; J2250; J2270; J2405; J2704; J2765; J3010; J3370; J3490; J7030; J7040; J7050; J7060; J7120; J8540; 36415-L1; 36415-TC; 71045-TC; C1716

== ENCOUNTER 2020-07-10 12:39 | Emergency (ER) | payer MEDICAID, OTHER ==
[~2020-07-10] VITALS: Ht 154.9 cm; Wt 59.1 kg
[~2020-07-10 12:39] MED LIST: ASA PO; COLACE PO; NEOM28.37 TP; NORCO 5/325 PO; [UNRECOGNIZED DRUG - OTHER] PO
[2020-07-10 15:07] VITALS: BP 110/68
== END 2020-07-10 15:35 | disposition home or self-care (01) ==
LOC: EMS 12:39
DX: S82.62XG Displaced fracture of lateral malleolus of left fibula, subsequent encounter for closed fracture with delayed healing (principal); S82.52XG Displaced fracture of medial malleolus of left tibia, subsequent encounter for closed fracture with delayed healing; F17.200 Nicotine dependence, unspecified, uncomplicated; X58.XXXD Exposure to other specified factors, subsequent encounter
CPT/HCPCS: 93971; 99284; 73590-TC; 73610-TC; Z7502